=== PATIENT | female | born 1990 | race Caucasian/White ===

== ENCOUNTER 2021-03-24 14:29 | Emergency (ER) | payer BC ==
[~2021-03-24] VITALS: Ht 172.7 cm; Wt 77.1 kg
[2021-03-24] MEDS ORDERED: PYRIDIUM200 MG PO (17:47)
[2021-03-24] MEDS ORDERED: BACTRIM DS TAB1 EACH PO (17:47)
== END 2021-03-24 17:57 | disposition home or self-care (01) ==
LOC: ER 14:29
DX: N39.0 Urinary tract infection, site not specified (principal); R30.0 Dysuria